=== PATIENT | male | born 1955 | race American Indian/Alaskan Native ===

== ENCOUNTER 2020-05-06 22:14 | Emergency (ER) | payer SELFPAY ==
[2020-05-06 23:42] VITALS: BP 145/80
--- NOTE | 2020-05-07 01:19 | XRay Report ---
CHEST PA AND LATERAL VIEWS INDICATION: MAIN. COMPARISON: None FINDINGS: Support devices: None Heart: Normal Lungs/Pleura: No acute pulmonary or pleural findings. IMPRESSION: 1. No significant abnormality. Signer Name: Jared Valenzuela MD Signed: 05/07/2020 1:14 AM Workstation Name: [id number]
--- NOTE | 2020-05-07 04:20 | Emergency Department Report ---
- General Chief Complaint: Upper Respiratory Infection Stated Complaint: HEADACHE COUGH SOB Source: patient Mode of arrival: Ambulatory Limitations: No Limitations - History of Present Illness Initial Comments: Patient is a 64-year-old -[place] male with a history of hypertension who presents to the ED with complaint of acute onset persistent nasal and sinus congestion, persistent frontal sinus pressure and headache, sore throat, persistent dry cough with occasional production of yellowish phlegm and pleuritic chest wall pain for the last 2 days. 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 Patient states that he would like to be tested for COVID-19 viral infection in this ED during this visit. Patient denies fever, chills, loss of taste or loss of sense of smell, dizziness, syncope, chest pain, shortness of breath, abdominal pain, nausea, vomiting, diarrhea, dysuria or urinary frequency and urgency. MD Complaint: cough, sore throat, rhinorrhea, nasal congestion, sinus pain -: Sudden, days(s) (2) Severity: moderate Severity scale (0 -10): 4 Quality: sharp, aching Consistency: intermittent Improves With: nothing Worsens With: nothing Context: sick contacts Associated Symptoms: denies other symptoms, headache, rhinorrhea, nasal congestion, sore throat, cough. denies: fever, myalgias, diaphoresis, chest pain, shortness of breath, nausea, vomiting, diarrhea, dysuria, confusion, right sweats, epistaxis, ear pain Treatments Prior to Arrival: none - Related Data Previous Rx's Medication Instructions Recorded Last Taken Type Azithromycin [Zithromax Z-LESLIE] 250 mg PO DAILY #6 tablet 05/07/20 Unknown Rx Benzonatate [Tessalon Perles] 100 mg PO Q8HR #30 capsule 05/07/20 Unknown Rx Cetirizine HCl [Zyrtec 10mg tab] 10 mg PO DAILY #30 tablet 05/07/20 Unknown Rx Ibuprofen [Motrin] 600 mg PO Q8H PRN #24 tablet 05/07/20 Unknown Rx predniSONE [Deltasone] 40 mg PO QDAY #10 tab 05/07/20 Unknown Rx Allergies Allergy/AdvReac Type Severity Reaction Status Date / Time No Known Allergies Allergy Unverified 05/06/20 23:45 ED Review of Systems ROS: Stated complaint: HEADACHE COUGH SOB Other details as noted in HPI Constitutional: denies: chills, fever Eyes: denies: eye pain, eye discharge, vision change ENT: throat pain, congestion, other (Frontal sinus pressure and headache). denies: ear pain Respiratory: cough. denies: shortness of breath, SOB with exertion, SOB at rest, wheezing Cardiovascular: denies: chest pain, palpitations Endocrine: no symptoms reported Gastrointestinal: denies: abdominal pain, nausea, vomiting, diarrhea Genitourinary: denies: urgency, dysuria Musculoskeletal: denies: back pain, joint swelling, arthralgia Skin: denies: rash, lesions Neurological: headache (Frontal sinus pressure and headache). denies: weakness, paresthesias Psychiatric: denies: anxiety, depression Hematological/Lymphatic: denies: easy bleeding, easy bruising ED Past Medical Hx - Past Medical History Previous Medical History?: Yes Hx Hypertension: Yes - Surgical History Past Surgical History?: No - Social History Smoking Status: Never Smoker Substance Use Type: None - Medications Home Medications: Home Medications Medication Instructions Recorded Confirmed Last Taken Type Azithromycin [Zithromax Z-LESLIE] 250 mg PO DAILY #6 tablet 05/07/20 Unknown Rx Benzonatate [Tessalon Perles] 100 mg PO Q8HR #30 capsule 05/07/20 Unknown Rx Cetirizine HCl [Zyrtec 10mg tab] 10 mg PO DAILY #30 tablet 05/07/20 Unknown Rx Ibuprofen [Motrin] 600 mg PO Q8H PRN #24 tablet 05/07/20 Unknown Rx predniSONE [Deltasone] 40 mg PO QDAY #10 tab 05/07/20 Unknown Rx ED Physical Exam - General Limitations: No Limitations General appearance: alert, in no apparent distress - Head Head exam: Present: atraumatic, normocephalic, normal inspection - Eye Eye exam: Present: normal appearance, PERRL, EOMI Pupils: Present: normal accommodation - ENT ENT exam: Present: normal orophraynx, mucous membranes moist, normal external ear exam, other (Grossly congested nasal passages; palpable frontal sinus tenderness) - Neck Neck exam: Present: normal inspection, full ROM. Absent: tenderness - Respiratory Respiratory exam: Present: normal lung sounds bilaterally. Absent: respiratory distress, wheezes, rales, rhonchi, chest wall tenderness, accessory muscle use, decreased breath sounds, prolonged expiratory - Cardiovascular Cardiovascular Exam: Present: regular rate, normal rhythm, normal heart sounds. Absent: systolic murmur, diastolic murmur, rubs, gallop - GI/Abdominal GI/Abdominal exam: Present: soft, normal bowel sounds. Absent: distended, tenderness, guarding, rebound, rigid, hyperactive bowel sounds, hypoactive bowel sounds, organomegaly - Extremities Exam Extremities exam: Present: normal inspection, full ROM, normal capillary refill - Back Exam Back exam: Present: normal inspection, full ROM. Absent: tenderness, CVA tenderness (R), CVA tenderness (L), muscle spasm, paraspinal tenderness - Neurological Exam Neurological exam: Present: alert, oriented X3, CN II-XII intact, normal gait, reflexes normal - Psychiatric Psychiatric exam: Present: normal affect, normal mood - Skin Skin exam: Present: warm, dry, intact, normal color. Absent: rash ED Course Vital Signs 05/06/20 23:41 Temperature 98.7 F Pulse Rate 82 Respiratory 18 Rate Blood Pressure 145/80 O2 Sat by Pulse 96 Oximetry ED Medical Decision Making - Radiology Data Radiology results: report reviewed, image reviewed Findings [facility] [address] [place] [address] XRay Report Signed Patient: IZABEL MUNSON MR#: [id number] : 1955 Acct:[id number] Age/Sex: 64 / M ADM Date: 05/06/20 Loc: ED Attending Dr: Ordering Physician: JULIA MALONE MD Date of Service: 05/06/20 Procedure(s): XR chest routine 2V Accession Number(s): [id number] cc: ED MD KIRA Fluoro Time In Minutes: CHEST PA AND LATERAL VIEWS INDICATION: MAIN. COMPARISON: None FINDINGS: Support devices: None Heart: Normal Lungs/Pleura: No acute pulmonary or pleural findings. IMPRESSION: 1. No significant abnormality. Signer Name: Jared Valenzuela MD Signed: 05/07/2020 1:14 AM Workstation Name: [id number] Transcribed By: TM Dictated By: Jared Valenzuela MD Electronically Authenticated By: Jared Valenzuela MD Signed Date/Time: 05/07/20113 DD/ 3 TD/TT: - Medical Decision Making This is a 64-year-old -[place] male with a history of hypertension who presents to the ED with complaint of acute onset persistent nasal and sinus congestion, persistent frontal sinus pressure and headache, sore throat, persistent dry cough with occasional production of yellowish phlegm and pleuritic chest wall pain for the last 2 days. 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 Patient states that he would like to be tested for COVID-19 viral infection in this ED during this visit. In the ED, patient is alert and oriented x3 and is not in distress. Chest x-ray shows no acute cardiopulmonary abnormalities or pneumonitis. Patient was discharged home on medications based on the history and physical exam findings. Patient was advised to go to the outpatient clinic for COVID-19 viral infection testing. Patient was advised to return to the ED immediately if symptoms get worse, otherwise follow-up with his primary care physician in 5 to 7 days for reevaluation. - Differential Diagnosis Pneumonia; bronchitis; sinusitis; COVID-19; strep pharyngitis; URI Critical care attestation.: If time is entered above; I have spent that time in minutes in the direct care of this critically ill patient, excluding procedure time. ED Disposition Clinical Impression: Acute upper respiratory infection, Acute non-recurrent frontal sinusitis, Acute bacterial bronchitis Disposition: DC-01 TO HOME OR SELFCARE Is pt being admited?: No Does the pt Need Aspirin: No Condition: Stable Instructions: Acute Bronchitis (ED), Acute Bacterial Rhinosinusitis (ED), Upper Respiratory Infection (ED) Additional Instructions: Take medications with food, drink plenty of fluids and follow-up with your primary care physician in 5 to 7 days for reevaluation. Return to the ED immediately if symptoms get worse. Prescriptions: predniSONE [Deltasone] 40 mg PO QDAY #10 tab Ibuprofen [Motrin] 600 mg PO Q8H PRN #24 tablet PRN Reason: Pain Benzonatate [Tessalon Perles] 100 mg PO Q8HR #30 capsule Azithromycin [Zithromax Z-LESLIE] 250 mg PO DAILY #6 tablet Cetirizine HCl [Zyrtec 10mg tab] 10 mg PO DAILY #30 tablet Referrals: [facility] [Provider Group] - 3-5 Days Forms: Work/School Release Form(ED) Time of Disposition: 04:17 Print Language: FAROESE
== END 2020-05-07 05:22 | disposition home or self-care (01) ==
LOC: ED 22:14
DX: J01.10 Acute frontal sinusitis, unspecified (principal); J20.8 Acute bronchitis due to other specified organisms; I10 Essential (primary) hypertension; Z79.2 Long term (current) use of antibiotics; Z79.899 Other long term (current) drug therapy
CPT/HCPCS: 71046; 99283